=== PATIENT | male | born 2000 | race Caucasian/White ===

== ENCOUNTER 2020-06-15 18:32 | Emergency (ER) | payer OTHER ==
[2020-06-15 18:41] VITALS: BP 137/79; PULSE 113; RESP 18; TEMP 98.5
[2020-06-15] MEDS ORDERED: SULFAMETHOX-TMP 800-160MG 1 EACH TAB PO STA (19:17)
--- NOTE | 2020-06-15 20:57 | US ---
EXAMINATION TYPE: US thyroid st tissue head/neck DATE OF EXAM: 06/15/2020 COMPARISON: NONE CLINICAL HISTORY: pre auricular left face. Pre auricular left facial swelling, redness, and pressure x 3 days. Scanned area of concern left face anterior to the ear. Heterogeneous area with some vascularity seen measurin.1 x 2.1 x 1.0 cm. There also appears to be a hypoechoic area with hyperechoic center visualized near the first area kar sured. This second area measures: 0.9 x 1.1 x 0.5 cm. IMPRESSION: There appears to be a hypovascular hypoechoic complex irregular mass in the area of concern anterior to the left ear that could be phlegmon or abscess. This measures 2 x 1 cm. There is also a single enlarged lymph node measuring 11 x 9 x 4 mm.
--- NOTE | 2020-06-15 21:46 | ED ---
General Adult HPI - General Chief complaint: ENT Stated complaint: Facial swelling Time Seen by Provider: 06/15/20 18:45 Source: patient, RN notes reviewed, old records reviewed Mode of arrival: ambulatory Limitations: no limitations - History of Present Illness Initial comments: 20-year-old male patient proceeded for evaluation of left preauricular swelling and pain which has been ongoing for the last 3 days. Patient was that he had a pimple there and he scratched it and started after that. Patient reports he was able to express a little bit of purulent drainage today. Denies any systemic symptoms. Denies any other complaints. Systemic: Pt denies fatigue, fever/chills, rash. Pt denies weakness, night sweats, weight loss. Neuro: Pt denies headache, visual disturbances, syncope or pre-syncope. HEENT: Pt denies ocular discharge or irritation, otalgia, rhinorrhea, pharyngitis or notable lymphadenopathy. Cardiopulmonary: Pt denies chest pain, SOB, heart palpitations, dyspnea on exertion. Abdominal/GI: Pt denies abdominal pain, n/v/d. : Pt denies dysuria, burning w/ urination, frequency/urgency. Denies new onset urinary or bowel incontinence. MSK: Pt denies myalgia, loss of strength or function in extremities. Neuro: Pt denies new onset weakness, paresthesias. - Related Data Previous Rx's Medication Instructions Recorded Sulfamethox-Tmp 800-160Mg [Bactrim 1 tab PO Q12HR #20 tab 06/15/20 DS 800-160 mg] Allergies Allergy/AdvReac Type Severity Reaction Status Date / Time No Known Allergies Allergy Verified 06/15/20 20:50 Review of Systems ROS Statement: Those systems with pertinent positive or pertinent negative responses have been documented in the HPI. ROS Other: All systems not noted in ROS Statement are negative. Past Medical History Past Medical History: No Reported History History of Any Multi-Drug Resistant Organisms: None Reported Past Surgical History: No Surgical Hx Reported Past Psychological History: No Psychological Hx Reported Smoking Status: Former smoker Past Alcohol Use History: None Reported Past Drug Use History: None Reported General Exam - General Exam Comments Initial Comments: Constitutional: NAD, AOX3, Pt has pleasant affect. HEENT: NC/AT, trachea midline, neck supple, no lymphadenopathy. External ears appear normal, without discharge. Mucous membranes moist. Eyes PERRLA, EOM intact. There is no scleral icterus. No pallor noted. Cardiopulmonary: RRR, no murmurs, rubs or gallops, no JVD noted. Lungs CTAB in anterior and posterior islas. No peripheral edema. Abdominal exam: Abdomen soft and non-distended. Abdomen non-tender to palpation in all 4 quadrants. Neuro: CN II-XII grossly intact. No nuchal rigidity. MSK: Full active ROM in upper and lower extremities, 5/5 stregnth. Derm: 3 x 3 cm abscess noted in the left preauricular region. Area was cleaned. 18-gauge needle did display some purulent drainage. Limitations: no limitations Course Vital Signs 06/15/20 18:38 Temperature 98.5 F Pulse Rate 113 H Respiratory 18 Rate Blood Pressure 137/79 O2 Sat by Pulse 95 Oximetry Procedures - Incision & Drainage Consent Obtained: verbal consent Indication: pre auricular abscess Site: face I&D Cleaning Method: Alcohol Wipe Needle Aspiration Performed?: Yes I&D Drainage Obtained: Pus Culture Obtained?: Yes Patient Tolerated Procedure: well Medical Decision Making - Medical Decision Making 20 old male patient presents ED for abscess. Patient fell signs stable, afebrile. Physical exam displayed a by 3 cm abscess. Ultrasound confirmed an abscess and also a enlarged lymph node. I&D displayed some purulent drainage. Culture was obtained. Patient will be placed on Bactrim will discharge and close follow up and return precautions. Case discussed with Dr. Torres. Disposition Clinical Impression: Abscess Disposition: HOME SELF-CARE Condition: Stable Instructions (If sedation given, give patient instructions): Abscess (ED) Additional Instructions: Follow up with primary care provider tomorrow, use warm compresses. Return to ER if any worsening symptoms. Take antibiotics as directed. Prescriptions: Sulfamethox-Tmp 800-160Mg [Bactrim DS 800-160 mg] 1 tab PO Q12HR #20 tab Is patient prescribed a controlled substance at d/c from ED?: No Referrals: Estuardo España DO [Primary Care Provider] - 1-2 days
== END 2020-06-15 21:49 | disposition home or self-care (01) ==
LOC: EC 18:32
DX: H60.02 Abscess of left external ear (principal); Z87.891 Personal history of nicotine dependence
CPT/HCPCS: 10160; 76536; 87070; 87077; 87186; 87205; 99284